=== PATIENT | male | born 1990 | race Caucasian/White ===

== ENCOUNTER 2021-08-05 02:43 | Emergency (ER) | payer OTHER ==
[~2021-08-05] VITALS: Ht 180.3 cm; Wt 81.8 kg
[2021-08-05 03:37] VITALS: BP 118/83
== END 2021-08-05 04:50 | disposition home or self-care (01) ==
LOC: ER 02:43
DX: Z21 Asymptomatic human immunodeficiency virus [HIV] infection status (principal); Z56.0 Unemployment, unspecified; Z59.00 Homelessness unspecified
CPT/HCPCS: 99281

== ENCOUNTER 2021-09-08 01:47 | Emergency (ER) | payer SELFPAY ==
[~2021-09-08] VITALS: Ht 185.4 cm; Wt 75.0 kg
[2021-09-08 02:07] VITALS: BP 106/72
== END 2021-09-08 01:49 | disposition home or self-care (01) ==
LOC: ER 01:48
DX: Z00.00 Encounter for general adult medical examination without abnormal findings (principal); Z59.00 Homelessness unspecified; Z56.0 Unemployment, unspecified
CPT/HCPCS: 99283; A6449

== ENCOUNTER 2021-09-08 08:31 | Emergency (ER) | payer SELFPAY ==
[~2021-09-08] VITALS: Ht 185.4 cm; Wt 77.3 kg
[2021-09-08 08:43] VITALS: BP 120/79
== END 2021-09-08 11:38 | disposition left against medical advice (07) ==
LOC: ER 08:34
DX: M79.602 Pain in left arm (principal); Z53.21 Procedure and treatment not carried out due to patient leaving prior to being seen by health care provider